=== PATIENT | male | born 2005 | race Caucasian/White ===

== ENCOUNTER 2025-01-23 05:28 | Emergency (ER) | payer OTHER ==
[~2025-01-23] VITALS: Ht 170.2 cm; Wt 100.0 kg
[2025-01-23 05:38] VITALS: TEMP 98.4
[2025-01-23] MEDS: SODIUM CHLORIDE 0.9% 1,000 ML IV ONE (06:40)
[2025-01-23 06:41] LABS: INFLUENZA TYPE A NEGATIVE FOR TYPE A (NEGATIVE); INFLUENZA TYPE B NEGATIVE FOR TYPE B (NEGATIVE)
[2025-01-23] MEDS: ONDANSETRON HCL 4 MG/2 ML VIAL IVP ONE (06:41)
[2025-01-23 06:43] LABS: PLATELET COUNT (AUTO) 332 K/uL (150-450); RED BLOOD CELL COUNT(AUTO) 5.93 MIL/uL (4.50-5.90); RED CELL DISTRIBUTION WIDTH 13.9 % (11.5-14.5); WHITE BLOOD COUNT (AUTO) 11.4 K/uL (4.5-11.0)
[2025-01-23 06:50] LABS: CALCIUM, TOTAL 9.7 mg/dL (8.8-10.5); CREATININE 0.97 mg/dL (0.60-1.30); GLOMERULAR FILTR. RATE CALC > 60 mL/min (>60); GLUCOSE,RANDOM 98 mg/dL (70-110); SODIUM SERUM 134 mmol/L (136-145); UREA NITROGEN, BLOOD 10 mg/dL (7-18)
[2025-01-23 07:23] LABS: APPEARANCE,URINE CLEAR (CLEAR); GLUCOSE, URINE (UA) NEGATIVE (NEGATIVE); LEUKOCYTE ESTERASE ,URINE NEGATIVE (NEGATIVE); NITRATE,URINE NEGATIVE (NEGATIVE); OCCULT BLOOD,URINE SMALL (NEGATIVE); SPECIFIC GRAVITIY, URINE 1.034 (1.003-1.030)
[2025-01-23 07:43] LABS: SULFOSALICYLIC ACID,URINE Trace (Negative)
[2025-01-23 07:44] LABS: SQUAMOUS EPITHELIAL CELL,UR Few /LPF (None Seen)
[2025-01-23] MEDS ORDERED: ONDA-104 PO (08:18)
[2025-01-23 08:19] VITALS: BP 128/93; PULSE 100; RESP 20; O2SAT 99
== END 2025-01-23 08:27 | disposition home or self-care (01) ==
LOC: EMS 05:29
DX: R11.10 Vomiting, unspecified (principal); R10.9 Unspecified abdominal pain; Z20.822 Contact with and (suspected) exposure to COVID-19
CPT/HCPCS: 99284; 96374; 96361; 80048; 81001; 83690; 85025; 87804; 36415; 74022; J2405; J7030; 81002